=== PATIENT | female | born 1955 | race African-American/Black ===

== ENCOUNTER 2017-03-06 09:48 | Inpatient (IN) ==
[2017-03-06] MEDS ORDERED: EPINEPHrine 1 MG/ML VIAL SUBCUT STA ×2 (10:02→11:16)
[2017-03-06] MEDS ORDERED: FAMOTIDINE 20 MG/2 ML VIAL IV STA (10:02)
[2017-03-06] MEDS ORDERED: diphenhydrAMINE 50 MG/1 ML VIAL IV STA (10:02)
[2017-03-06] MEDS ORDERED: methylPREDNISolone SOD SUC 125 MG/2 ML VIAL IV STA ×2 (10:02→11:16)
[2017-03-06] MEDS ORDERED: diphenhydrAMINE 50 MG/1 ML VIAL ONE (10:12)
[2017-03-06] MEDS ORDERED: EPINEPHrine 1 MG/ML VIAL ONE ×2 (10:12→11:19)
[2017-03-06] MEDS ORDERED: methylPREDNISolone SOD SUC 125 MG/2 ML VIAL ONE ×2 (10:12→11:19)
[2017-03-06] MEDS ORDERED: FAMOTIDINE 20 MG/2 ML VIAL IV ONE (10:13)
[2017-03-06] MEDS ORDERED: ONDANSETRON 4 MG/2 ML VIAL IV PRN (13:09)
[2017-03-06] MEDS ORDERED: ALBUTEROL 2.5 MG/3 ML NEB RESP TX PRN (13:09)
[2017-03-06] MEDS ORDERED: diphenhydrAMINE 50 MG/1 ML VIAL IM PRN (13:15)
[2017-03-06] MEDS ORDERED: diphenhydrAMINE 50 MG/1 ML VIAL IV PRN (13:17)
[2017-03-06] MEDS ORDERED: DEXTROSE 50% 25 GM/50 ML VIAL IV PRN (13:18)
[2017-03-06] MEDS ORDERED: GLUCAGON 1 MG VIAL IM PRN (13:18)
[2017-03-06 14:06] LABS: Basophils % 0.1 % (0.0-0.8); Eosinophils % 0.1 % (0.00-10.9); Hematocrit 37.3 VOL% (35.7-47.0); Hemoglobin 11.8 GM/DL (12.0-16.0); Immature Granulocytes % 0.6 %; Immature Granulocytes Absolute 0.09 #; Lymphocytes # 1.5 10*3/uL (1.4-4.0); Lymphocytes % 10.6 % (21.3-54.2); Mean Corpuscular HGB Conc 31.6 GM/DL (32-36); Mean Corpuscular Hemoglobin 26 PG (27-34); Mean Corpuscular Volume 82.7 FL (87-102); Mean Platelet Volume 10.2 FL (9.6-12.0); Monocytes # 0.2 10*3/uL (0.11-0.8); Monocytes % 1.1 % (1.7-12.7); Neutrophils # 12.3 10*3/uL (1.4-7.4); Neutrophils % 87.5 % (38.7-73.9); Platelet Count 372 T/CUMM (130-400); Red Blood Count 4.51 MC/CUMM (3.8-5.5); Red Cell Distribution Width 14.5 % (9.3-17.3); White Blood Count 14.1 T/CUMM (4-12)
[2017-03-06 14:30] LABS: Alanine Aminotransferase 16 U/L (13-56); Albumin 3.8 G/DL (3.4-5.0); Alkaline Phosphatase 111 U/L (45-117); Aspartate Amino Transferase 13 U/L (0-37); Bilirubin,Total < 0.39 MG/DL (0.2-1.0); Blood Urea Nitrogen 9 MG/DL (7-18); Calcium 9.1 MG/DL (8.5-10.1); Glucose 142 MG/DL (74-106); Osmolality,Calculated 279.4 MOS/KG (273-304); Potassium 3.2 MMOL/L (3.5-5.1); Sodium 140 MMOL/L (136-145); Total Protein 7.5 G/DL (6.4-8.3); Troponin I Only < 0.015 NG/ML (0.00-0.045)
[2017-03-06] MEDS: SODIUM CHLORIDE 0.9% 1,000 ML IV SCH (14:37)
[2017-03-06] MEDS ORDERED: INSULIN DEGLUDEC 40 UNIT SUBCUT SCH (17:00)
[2017-03-06] MEDS: methylPREDNISolone SOD SUC 125 MG/2 ML VIAL IV SCH (18:22)
[2017-03-06] MEDS: INSULIN REGULAR 100 UNIT/ML SUBCUT SCH (18:22)
[2017-03-06] MEDS: METOPROLOL SUCCINATE XL 25 MG TABLET PO SCH (20:36)
[2017-03-06] MEDS: FAMOTIDINE 20 MG/2 ML VIAL IV SCH (20:36)
[2017-03-06] MEDS: GABAPENTIN 300 MG CAPSULE PO SCH (20:36)
[2017-03-06] MEDS: CETIRIZINE 10 MG TABLET PO SCH (20:38)
[2017-03-06] MEDS ORDERED: hydrALAZINE 20 MG/1 ML VIAL IV PRN (22:47)
[2017-03-07] MEDS: methylPREDNISolone SOD SUC 125 MG/2 ML VIAL IV SCH ×2 (00:57→06:55)
[2017-03-07] MEDS: INSULIN REGULAR 100 UNIT/ML SUBCUT SCH ×4 (01:02→17:28)
[2017-03-07] MEDS: SODIUM CHLORIDE 0.9% 1,000 ML IV SCH ×2 (01:04→08:47)
[2017-03-07 05:19] LABS: Hematocrit 37.1 VOL% (35.7-47.0); Hemoglobin 12.2 GM/DL (12.0-16.0); Immature Granulocytes % 0.5 %; Immature Granulocytes Absolute 0.04 #; Lymphocytes # 1.2 10*3/uL (1.4-4.0); Lymphocytes % 13.2 % (21.3-54.2); Mean Corpuscular HGB Conc 32.9 GM/DL (32-36); Mean Corpuscular Hemoglobin 27 PG (27-34); Mean Corpuscular Volume 80.5 FL (87-102); Mean Platelet Volume 10.2 FL (9.6-12.0); Monocytes # 0.1 10*3/uL (0.11-0.8); Monocytes % 0.9 % (1.7-12.7); Neutrophils # 7.5 10*3/uL (1.4-7.4); Neutrophils % 85.4 % (38.7-73.9); Platelet Count 314 T/CUMM (130-400); Red Blood Count 4.61 MC/CUMM (3.8-5.5); Red Cell Distribution Width 14.5 % (9.3-17.3); White Blood Count 8.7 T/CUMM (4-12)
[2017-03-07 05:39] LABS: Calcium 8.7 MG/DL (8.5-10.1); Osmolality,Calculated 279.4 MOS/KG (273-304); Potassium 3.9 MMOL/L (3.5-5.1)
[2017-03-07] MEDS: LOVASTATIN 20 MG TABLET PO SCH (08:46)
[2017-03-07] MEDS: SERTRALINE 50 MG TABLET PO SCH (08:47)
[2017-03-07] MEDS: CALCIUM (CARBONATE)/VITAMIN D 600 MG-400 UNIT TABLET PO SCH (08:47)
[2017-03-07] MEDS: FAMOTIDINE 20 MG/2 ML VIAL IV SCH ×2 (08:47→20:53)
[2017-03-07] MEDS: CLOPIDOGREL 75 MG TABLET PO SCH (08:47)
[2017-03-07] MEDS: METOPROLOL SUCCINATE XL 25 MG TABLET PO SCH ×2 (08:47→20:53)
[2017-03-07] MEDS: amLODIPine 10 MG TABLET PO SCH (08:47)
[2017-03-07] MEDS: GABAPENTIN 300 MG CAPSULE PO SCH ×3 (08:47→20:53)
[2017-03-07] MEDS: CETIRIZINE 10 MG TABLET PO SCH ×2 (08:47→20:53)
[2017-03-07] MEDS: ASPIRIN EC 81 MG TABLET PO SCH (08:47)
[2017-03-07] MEDS: hydroCHLOROthiazide 25 MG TABLET PO SCH (11:34)
[2017-03-08] MEDS: INSULIN REGULAR 100 UNIT/ML SUBCUT SCH ×2 (00:03→06:38)
[2017-03-08 06:51] LABS: Basophils % 0.1 % (0.0-0.8); Hematocrit 36.3 VOL% (35.7-47.0); Hemoglobin 11.7 GM/DL (12.0-16.0); Immature Granulocytes % 0.5 %; Immature Granulocytes Absolute 0.05 #; Lymphocytes # 2.2 10*3/uL (1.4-4.0); Lymphocytes % 19.7 % (21.3-54.2); Mean Corpuscular HGB Conc 32.2 GM/DL (32-36); Mean Corpuscular Hemoglobin 26 PG (27-34); Mean Corpuscular Volume 80.5 FL (87-102); Monocytes # 0.7 10*3/uL (0.11-0.8); Monocytes % 6.7 % (1.7-12.7); Neutrophils # 8.1 10*3/uL (1.4-7.4); Platelet Count 323 T/CUMM (130-400); Red Blood Count 4.51 MC/CUMM (3.8-5.5); Red Cell Distribution Width 14.6 % (9.3-17.3)
[2017-03-08 07:28] LABS: Osmolality,Calculated 281.4 MOS/KG (273-304); Potassium 3.7 MMOL/L (3.5-5.1)
[2017-03-08 08:52] VITALS: BP 151/73
[2017-03-08] MEDS ORDERED: predniSONE 20 MG TABLET PO SCH (09:00)
[2017-03-08] MEDS: amLODIPine 10 MG TABLET PO SCH (09:15)
[2017-03-08] MEDS: hydroCHLOROthiazide 25 MG TABLET PO SCH (09:15)
[2017-03-08] MEDS: ASPIRIN EC 81 MG TABLET PO SCH (09:16)
[2017-03-08] MEDS: LOVASTATIN 20 MG TABLET PO SCH (09:16)
[2017-03-08] MEDS: METOPROLOL SUCCINATE XL 25 MG TABLET PO SCH (09:16)
[2017-03-08] MEDS: CALCIUM (CARBONATE)/VITAMIN D 600 MG-400 UNIT TABLET PO SCH (09:16)
[2017-03-08] MEDS: CLOPIDOGREL 75 MG TABLET PO SCH (09:16)
[2017-03-08] MEDS: SERTRALINE 50 MG TABLET PO SCH (09:16)
[2017-03-08] MEDS: CETIRIZINE 10 MG TABLET PO SCH (09:17)
[2017-03-08] MEDS: GABAPENTIN 300 MG CAPSULE PO SCH (09:17)
[2017-03-08] MEDS: FAMOTIDINE 20 MG/2 ML VIAL IV SCH (09:17)
== END 2017-03-08 10:44 | disposition home or self-care (01) | DRG 916 ==
LOC: N.ED 09:48 → SUATTDRO 12:18 → N.EDINP 12:18 → N.CC 13:05 → N.5E 03-07 17:48
PROVIDERS: ADMIT Internal Medicine; ATTEND Internal Medicine

== ENCOUNTER 2017-06-01 10:18 | Inpatient (IN) ==
[2017-06-01] MEDS ORDERED: diphenhydrAMINE 50 MG/1 ML VIAL IV STA (10:41)
[2017-06-01] MEDS ORDERED: FAMOTIDINE 20 MG/2 ML VIAL IV STA (10:41)
[2017-06-01] MEDS ORDERED: methylPREDNISolone SOD SUC 125 MG/2 ML VIAL IV STA (10:41)
[2017-06-01] MEDS ORDERED: FAMOTIDINE 20 MG/2 ML VIAL IV ONE (10:43)
[2017-06-01] MEDS ORDERED: diphenhydrAMINE 50 MG/1 ML VIAL ONE (10:43)
[2017-06-01] MEDS ORDERED: SODIUM CHLORIDE 0.9% 100 ML IV ONE (10:43)
[2017-06-01] MEDS ORDERED: methylPREDNISolone SOD SUC 125 MG/2 ML VIAL ONE (10:43)
[2017-06-01 10:53] LABS: Basophils % 0.3 % (0.0-0.8); Eosinophils # 0.2 10*3/uL (0.0-0.87); Eosinophils % 2.9 % (0.00-10.9); Immature Granulocytes % 0.3 %; Immature Granulocytes Absolute 0.02 #; Lymphocytes # 2.3 10*3/uL (1.4-4.0); Lymphocytes % 31.4 % (21.3-54.2); Mean Corpuscular HGB Conc 32.4 GM/DL (32-36); Mean Corpuscular Hemoglobin 26 PG (27-34); Mean Corpuscular Volume 81.1 FL (87-102); Mean Platelet Volume 9.9 FL (9.6-12.0); Monocytes # 0.6 10*3/uL (0.11-0.8); Monocytes % 8.9 % (1.7-12.7); Neutrophils # 4.1 10*3/uL (1.4-7.4); Neutrophils % 56.2 % (38.7-73.9); Platelet Count 346 T/CUMM (130-400); Red Blood Count 4.56 MC/CUMM (3.8-5.5); Red Cell Distribution Width 15.3 % (9.3-17.3); White Blood Count 7.2 T/CUMM (4-12)
[2017-06-01] MEDS ORDERED: SODIUM CHLORIDE 0.9% 1,000 ML IV PRN (11:22)
[2017-06-01] MEDS ORDERED: LIDOCAINE 1%/EPI INJ 20 ML VIAL ONE (11:22)
[2017-06-01 11:26] LABS: Osmolality,Calculated 278.5 MOS/KG (273-304); Potassium 3.6 MMOL/L (3.5-5.1)
[2017-06-01] MEDS ORDERED: PROPOFOL 200 MG/20 ML VIAL IV ONE (12:38)
[2017-06-01] MEDS: PROPOFOL 1,000 MG/100 ML BOTTLE IV SCH ×3 (12:38→21:18)
[2017-06-01] MEDS ORDERED: SEVOFLURANE 1 UNIT/15 MINUTE INH ONE (12:38)
[2017-06-01] MEDS ORDERED: LIDOCAINE 4% TOP SOLN 50 ML BOTTLE ONE (12:38)
[2017-06-01] MEDS ORDERED: VECURONIUM 10 MG VIAL IV ONE (12:39)
[2017-06-01] MEDS ORDERED: LACTATED RINGERS 1,000 ML IV ONE (12:39)
[2017-06-01] MEDS ORDERED: MIDAZOLAM 2 MG/2 ML VIAL ONE (12:39)
[2017-06-01] MEDS ORDERED: fentaNYL 100 MCG/2 ML VIAL ONE (12:39)
[2017-06-01 12:58] LABS: ABG HCO3 25.3 MMOL/L (20-26); ABG Oxygen Saturation 98.6 % (95-100); ABG PCO2 49.7 MM HG (35-48); ABG PH 7.348 (7.35-7.45); ABG TCO2 24.5 MMOL/L (23-27); Pt O2 Delivery Device Ventilator
[2017-06-01] MEDS ORDERED: LACTATED RINGERS 1,000 ML IV SCH (16:30)
[2017-06-01] MEDS: INSULIN REGULAR 100 UNIT/ML SUBCUT SCH ×2 (17:18→20:46)
[2017-06-01] MEDS: diphenhydrAMINE 50 MG/1 ML VIAL IV SCH ×2 (17:28→23:59)
[2017-06-01] MEDS: DEXTROSE 5% NACL 0.45% 1,000 ML IV SCH (17:28)
[2017-06-01] MEDS: FAMOTIDINE 20 MG/2 ML VIAL IV SCH (17:28)
[2017-06-01] MEDS: DEXAMETHASONE 4 MG/1 ML VIAL IV SCH ×2 (17:29→21:19)
[2017-06-01] MEDS: PANTOPRAZOLE 40 MG VIAL IV SCH (20:46)
[2017-06-01] MEDS: ENOXAPARIN 40 MG/0.4 ML SYRINGE SUBCUT SCH (20:47)
[2017-06-02] MEDS: PROPOFOL 1,000 MG/100 ML BOTTLE IV SCH ×9 (00:10→22:45)
[2017-06-02 03:41] LABS: ABG Base Excess 1.8 MMOL/L (-2.5-2.5); ABG HCO3 25.5 MMOL/L (20-26); ABG Oxygen Saturation 98.6 % (95-100); ABG PH 7.457 (7.35-7.45); ABG PO2 140.3 MM HG (80-95); ABG TCO2 26.7 MMOL/L (23-27)
[2017-06-02] MEDS: DEXAMETHASONE 4 MG/1 ML VIAL IV SCH ×4 (04:08→23:16)
[2017-06-02] MEDS: FAMOTIDINE 20 MG/2 ML VIAL IV SCH ×2 (04:08→16:39)
[2017-06-02] MEDS: diphenhydrAMINE 50 MG/1 ML VIAL IV SCH ×4 (05:35→23:35)
[2017-06-02 08:11] LABS: Hematocrit 36.8 VOL% (35.7-47.0); Hemoglobin 12.2 GM/DL (12.0-16.0); Immature Granulocytes % 0.5 %; Immature Granulocytes Absolute 0.05 #; Lymphocytes # 1.2 10*3/uL (1.4-4.0); Lymphocytes % 13.1 % (21.3-54.2); Mean Corpuscular HGB Conc 33.2 GM/DL (32-36); Mean Corpuscular Hemoglobin 27 PG (27-34); Mean Corpuscular Volume 79.8 FL (87-102); Mean Platelet Volume 10.3 FL (9.6-12.0); Monocytes # 0.2 10*3/uL (0.11-0.8); Monocytes % 2.1 % (1.7-12.7); Neutrophils # 7.9 10*3/uL (1.4-7.4); Neutrophils % 84.3 % (38.7-73.9); Platelet Count 345 T/CUMM (130-400); Red Blood Count 4.61 MC/CUMM (3.8-5.5); Red Cell Distribution Width 15.6 % (9.3-17.3); White Blood Count 9.3 T/CUMM (4-12)
[2017-06-02] MEDS: PANTOPRAZOLE 40 MG VIAL IV SCH ×2 (08:35→21:12)
[2017-06-02 08:39] LABS: Calcium 9.1 MG/DL (8.5-10.1); Osmolality,Calculated 284.7 MOS/KG (273-304); Potassium 4.2 MMOL/L (3.5-5.1)
[2017-06-02] MEDS: INSULIN REGULAR 100 UNIT/ML SUBCUT SCH ×4 (09:33→21:12)
[2017-06-02 10:19] LABS: Apearance,Urine CLEAR (Clear); Bilirubin,Urine Negative (Negative); Blood, Urine Small mg/dL (Negative); Glucose,Urine (UA) >=500 mg/dL (Negative); Ketones,Urine 5 mg/dL (Negative); Nitrite,Urine Negative (Negative); Protein,Urine Negative; RBC,Urine 32 /HPF (0-4); Squamous Epithelial Cell,Urine Occasional /HPF (0-10); Urine Color Yellow (Yellow); Urine Specific Gravity 1.026 (1.001-1.035); Urine Urobilinogen < 2.0 EU/DL (0.2-1.0); WBC,Urine <1 /HPF (0-6)
[2017-06-02] MEDS ORDERED: DEXTROSE 50% 25 GM/50 ML VIAL IV PRN (11:21)
[2017-06-02] MEDS ORDERED: GLUCAGON 1 MG VIAL IM PRN (11:21)
[2017-06-02] MEDS: DEXTROSE 5% NACL 0.45% 1,000 ML IV SCH (12:30)
[2017-06-02] MEDS ORDERED: MORPHINE 4 MG/1 ML VIAL IV PRN (13:18)
[2017-06-02] MEDS: ENOXAPARIN 40 MG/0.4 ML SYRINGE SUBCUT SCH (21:12)
[2017-06-03] MEDS: PROPOFOL 1,000 MG/100 ML BOTTLE IV SCH ×5 (01:00→12:28)
[2017-06-03 03:28] LABS: ABG Base Excess 3.1 MMOL/L (-2.5-2.5); ABG HCO3 27.2 MMOL/L (20-26); ABG Oxygen Saturation 99.5 % (95-100); ABG PCO2 44.7 MM HG (35-48); ABG TCO2 25.1 MMOL/L (23-27); Allen Test Positive; Pt O2 Delivery Device Ventilator
[2017-06-03] MEDS: FAMOTIDINE 20 MG/2 ML VIAL IV SCH ×2 (05:29→16:59)
[2017-06-03] MEDS: DEXAMETHASONE 4 MG/1 ML VIAL IV SCH ×4 (05:29→23:03)
[2017-06-03] MEDS: diphenhydrAMINE 50 MG/1 ML VIAL IV SCH ×4 (05:30→23:04)
[2017-06-03 07:45] LABS: Basophils % 0.1 % (0.0-0.8); Hematocrit 37.5 VOL% (35.7-47.0); Hemoglobin 12.7 GM/DL (12.0-16.0); Immature Granulocytes % 0.6 %; Immature Granulocytes Absolute 0.06 #; Lymphocytes % 9.1 % (21.3-54.2); Mean Corpuscular HGB Conc 33.9 GM/DL (32-36); Mean Corpuscular Hemoglobin 27 PG (27-34); Mean Corpuscular Volume 79.8 FL (87-102); Mean Platelet Volume 10.1 FL (9.6-12.0); Monocytes # 0.6 10*3/uL (0.11-0.8); Monocytes % 5.6 % (1.7-12.7); Neutrophils # 9.1 10*3/uL (1.4-7.4); Neutrophils % 84.6 % (38.7-73.9); Platelet Count 360 T/CUMM (130-400); Red Cell Distribution Width 15.9 % (9.3-17.3); White Blood Count 10.7 T/CUMM (4-12)
[2017-06-03] MEDS: INSULIN REGULAR 100 UNIT/ML SUBCUT SCH ×4 (08:10→20:27)
[2017-06-03 08:15] LABS: Calcium 9.1 MG/DL (8.5-10.1); Osmolality,Calculated 287.3 MOS/KG (273-304); Potassium 3.6 MMOL/L (3.5-5.1)
[2017-06-03 08:20] LABS: Prealbumin 28.4 MG/DL (20-40)
[2017-06-03] MEDS: PANTOPRAZOLE 40 MG VIAL IV SCH ×2 (09:04→20:28)
[2017-06-03] MEDS: METOPROLOL TARTRATE 25 MG TABLET PO SCH ×2 (11:19→20:26)
[2017-06-03] MEDS ORDERED: amLODIPine 10 MG TABLET PO SCH (11:30)
[2017-06-03 12:03] LABS: ABG Base Excess 5.2 MMOL/L (-2.5-2.5); ABG HCO3 29.8 MMOL/L (20-26); ABG PCO2 43.4 MM HG (35-48); ABG PH 7.454 (7.35-7.45); ABG PO2 80.2 MM HG (80-95); ABG TCO2 31.1 MMOL/L (23-27)
[2017-06-03] MEDS ORDERED: ASPIRIN EC 81 MG TABLET PO SCH (13:00)
[2017-06-03] MEDS: SERTRALINE 50 MG TABLET PO SCH (13:35)
[2017-06-03] MEDS: metFORMIN 500 MG TABLET PO SCH (16:59)
[2017-06-03] MEDS: INSULIN GLARGINE 100 UNIT/ML SUBCUT SCH (20:27)
[2017-06-03] MEDS: ENOXAPARIN 40 MG/0.4 ML SYRINGE SUBCUT SCH (20:27)
[2017-06-04 04:44] LABS: ABG Base Excess 4.7 MMOL/L (-2.5-2.5); ABG HCO3 28.6 MMOL/L (20-26); ABG Oxygen Saturation 97.1 % (95-100); ABG PCO2 44.7 MM HG (35-48); ABG PH 7.431 (7.35-7.45); ABG PO2 93.1 MM HG (80-95); ABG TCO2 25.8 MMOL/L (23-27); Allen Test Positive
[2017-06-04] MEDS: FAMOTIDINE 20 MG/2 ML VIAL IV SCH ×2 (05:23→16:07)
[2017-06-04] MEDS: DEXAMETHASONE 4 MG/1 ML VIAL IV SCH ×4 (05:23→23:14)
[2017-06-04] MEDS: diphenhydrAMINE 50 MG/1 ML VIAL IV SCH ×4 (05:24→23:15)
[2017-06-04] MEDS: CLOPIDOGREL 75 MG TABLET PO SCH (08:13)
[2017-06-04] MEDS: metFORMIN 500 MG TABLET PO SCH ×2 (08:13→19:51)
[2017-06-04] MEDS: PANTOPRAZOLE 40 MG VIAL IV SCH ×2 (08:13→21:22)
[2017-06-04] MEDS: METOPROLOL TARTRATE 25 MG TABLET PO SCH ×2 (08:13→21:15)
[2017-06-04] MEDS: SERTRALINE 50 MG TABLET PO SCH (08:13)
[2017-06-04] MEDS: INSULIN REGULAR 100 UNIT/ML SUBCUT SCH ×4 (08:24→21:15)
[2017-06-04] MEDS: PROPOFOL 1,000 MG/100 ML BOTTLE IV SCH (13:06)
[2017-06-04] MEDS ORDERED: hydrALAZINE 25 MG TABLET ONE (21:12)
[2017-06-04] MEDS: INSULIN GLARGINE 100 UNIT/ML SUBCUT SCH (21:16)
[2017-06-04] MEDS: ENOXAPARIN 40 MG/0.4 ML SYRINGE SUBCUT SCH (21:22)
[2017-06-05] MEDS: FAMOTIDINE 20 MG/2 ML VIAL IV SCH (03:53)
[2017-06-05] MEDS: DEXAMETHASONE 4 MG/1 ML VIAL IV SCH ×2 (03:59→10:25)
[2017-06-05] MEDS: diphenhydrAMINE 50 MG/1 ML VIAL IV SCH (05:37)
[2017-06-05] MEDS: CLOPIDOGREL 75 MG TABLET PO SCH (10:25)
[2017-06-05] MEDS: METOPROLOL TARTRATE 25 MG TABLET PO SCH (10:25)
[2017-06-05] MEDS: metFORMIN 500 MG TABLET PO SCH (10:25)
[2017-06-05] MEDS: SERTRALINE 50 MG TABLET PO SCH (10:25)
[2017-06-05] MEDS: PANTOPRAZOLE 40 MG VIAL IV SCH (10:26)
[2017-06-05 14:47] VITALS: BP 163/75
[2017-06-05] MEDS ORDERED: diphenhydrAMINE CAP 25 MG CAPSULE PO SCH (15:00)
[2017-06-05] MEDS ORDERED: FAMOTIDINE 20 MG TABLET PO SCH (21:00)
== END 2017-06-05 14:30 | disposition home or self-care (01) | DRG 915 ==
LOC: N.ED 10:18 → N.ICU 11:43 → N.SDS 11:43 → N.ICU 13:36 → N.4E 06-04 17:56
PROVIDERS: ADMIT Hospitalist; ATTEND Hospitalist